=== PATIENT | male | born 1965 | race African-American/Black ===

== ENCOUNTER 2017-03-31 06:29 | Day surgery (SDC) | payer BC ==
[~2017-03-31] VITALS: Ht 177.8 cm; Wt 113.4 kg
[~2017-03-31 06:29] MED LIST: PANT20TA PO
[2017-03-31] MEDS ORDERED: SODIUM CHLORIDE 0.9% 1000ML 1,000 ML IV ONE (06:47)
[2017-03-31 06:59] VITALS: BP 109/72
[2017-03-31] MEDS ORDERED: PROPOFOL 10 MG/ML 20ML VIAL IV ONE (07:25)
[2017-03-31] MEDS ORDERED: GLYCOPYRROLATE 0.2 MG/ML 5 ML VIAL ONE (07:25)
[2017-03-31] MEDS ORDERED: FENTANYL CITRATE PF 50 MCG/1 ML 2ML VIAL ONE (07:25)
[2017-03-31 07:44] VITALS: BP 88/54
== END 2017-03-31 08:20 ==
LOC: DAH 06:29
PROVIDERS: ATTEND Internal Medicine Gastroenterology
DX: K31.84 Gastroparesis (principal); K21.9 Gastro-esophageal reflux disease without esophagitis
CPT/HCPCS: 43235; A4606; J2704; J3010; J3490; J7030

== ENCOUNTER → 2017-04-30 | Outpatient (CLI) | payer BC | END | disposition home or self-care (01) | LOC: RAH 10:26 | PROVIDERS: ATTEND Internal Medicine Gastroenterology | DX: R11.0 Nausea (principal); R14.0 Abdominal distension (gaseous); R14.2 Eructation; R10.9 Unspecified abdominal pain | CPT/HCPCS: 78264; A9541 ==

== ENCOUNTER → 2017-05-14 | Outpatient (CLI) | payer BC | END | disposition home or self-care (01) | LOC: RAH 08:32 | PROVIDERS: ATTEND Internal Medicine Gastroenterology | DX: R10.84 Generalized abdominal pain (principal); R63.4 Abnormal weight loss | CPT/HCPCS: 76700 ==

== ENCOUNTER 2017-11-27 11:24 | Observation (INO) | payer BC ==
[2017-11-27] VITALS (19 sets, daily range): BP systolic 101–123; BP diastolic 55–75
[~2017-11-27] VITALS: Ht 180.3 cm; Wt 113.4 kg
[2017-11-27 12:00] LABS: APPEARANCE,URINE Clear (CLEAR); BILIRUBIN,URINE Negative (NEGATIVE); COLOR,URINE Yellow (YELLOW); GLUCOSE, URINE (UA) Negative (NEGATIVE); KETONES,URINE Negative (NEGATIVE); LEUKOCYTE ESTERASE ,URINE Negative (NEGATIVE); NITRATE,URINE Negative (NEGATIVE); OCCULT BLOOD,URINE Negative (NEGATIVE); PH,URINE 7.5 (5.0-8.0); PROTEIN,URINE Negative (NEGATIVE); UROBILINOGEN,URINE 0.2 mg/dL (0.2-1.0)
[2017-11-27] MEDS ORDERED: KETOROLAC TROMETHAMINE 30MG/ML ONE ×2 (12:07→16:08)
[2017-11-27] MEDS ORDERED: SODIUM CHLORIDE 0.9% 1000ML 1,000 ML IV ONE (12:07)
[2017-11-27] MEDS ORDERED: ONDANSETRON HCL 4 MG/2 ML VIAL ONE ×2 (12:07→16:07)
[2017-11-27 12:14] LABS: BASOPHILS % (AUTO) 0.6 % (0.0-5.0); HEMATOCRIT 45.4 % (42-54); LYMPHOCYTES % (AUTO) 22.5 % (21.0-51.0); MEAN CORPUSCULAR HEMOGLOBIN 28.5 pg (27.0-33.0); MEAN CORPUSCULAR HGB CONC 33.4 g/dL (32.0-36.0); MEAN CORPUSCULAR VOLUME 85.3 fL (79-99); NEUTROPHILS % (AUTO) 68.9 % (40.0-77.0); PLATELET COUNT (AUTO) 219 K/uL (130-400); RED BLOOD CELL COUNT(AUTO) 5.32 MIL/uL (4.50-6.20); RED CELL DISTRIBUTION WIDTH 13.9 % (11.0-15.5); WHITE BLOOD COUNT (AUTO) 8.8 K/uL (4.8-10.8)
[2017-11-27 12:21] LABS: CREATININE 1.2 mg/dL (0.5-1.5); POTASSIUM 4.1 mmol/L (3.5-5.1)
[2017-11-27 12:26] LABS: ALBUMIN 4.4 g/dL (3.5-5.0); BILIRUBIN,TOTAL 0.7 mg/dL (0.2-1.0); TOTAL PROTEIN, SERUM 7.9 g/dL (6.0-8.3)
[2017-11-27] MEDS ORDERED: IOHEXOL-350 75 ML VIAL IV ONE (12:31)
[2017-11-27] MEDS ORDERED: ZOSYN 3.375GM+NS 50ML 50 ML IV ONE (14:02)
[2017-11-27] MEDS ORDERED: LIDOCAINE PF 2% 5ML ABBOJECT ONE (14:30)
[2017-11-27] MEDS ORDERED: SUCCINYLCHOLINE 200MG/10ML SYR ONE (14:30)
[2017-11-27] MEDS ORDERED: PROPOFOL 10 MG/ML 20ML VIAL IV ONE (14:31)
[2017-11-27] MEDS ORDERED: ROCURONIUM 10MG/1ML SYR 10 MG/ML ML ONE (14:31)
[2017-11-27] MEDS ORDERED: FENTANYL CITRATE PF 50 MCG/1 ML 5ML AMP IV ONE (14:32)
[2017-11-27] MEDS ORDERED: MEPERIDINE-PF 50 MG/ML SYG ONE (14:50)
[2017-11-27] MEDS ORDERED: MIDAZOLAM HCL 1 MG/ML 2ML VIAL ONE (15:03)
[2017-11-27] MEDS ORDERED: DEXAMETHASONE SOD PHOSPHATE 4 MG/ML 1ML VIAL ONE (16:07)
[2017-11-27] MEDS ORDERED: GLYCOPYRROLATE 1 MG/5 ML SYRINGE ONE (16:11)
[2017-11-27] MEDS ORDERED: NEOSTIGMINE 5MG/5ML SYR IV ONE (16:11)
[2017-11-27] MEDS ORDERED: ACETAMINOPHEN 325 MG TAB PO PRN (16:30)
[2017-11-27] MEDS ORDERED: ONDANSETRON HCL 4 MG/2 ML VIAL IVP PRN (16:30)
[2017-11-27] MEDS ORDERED: FENTANYL CITRATE PF 50 MCG/1 ML 2ML VIAL ONE (16:44)
[2017-11-27] MEDS ORDERED: MORPHINE SULFATE 4 MG/1ML SYG ONE (16:54)
[2017-11-27] MEDS: LACTATED RINGERS 1000ML 1,000 ML IV SCH ×2 (17:25→21:00)
[2017-11-27] MEDS: ZOSYN 3.375GM+NS 50ML 50 ML IV SCH (21:00)
[2017-11-27] MEDS: MORPHINE SULFATE 2 MG/ML 1ML SYG IV PRN (22:28)
[2017-11-28 04:05] VITALS: BP 103/56
[2017-11-28] MEDS: ZOSYN 3.375GM+NS 50ML 50 ML IV SCH (04:39)
[2017-11-28] MEDS: MORPHINE SULFATE 2 MG/ML 1ML SYG IV PRN (05:57)
[2017-11-28] MEDS: ACETAMINOPHEN-CODEINE 300/30MG TAB PO PRN ×3 (06:53→14:17)
[2017-11-28 07:51] VITALS: BP 106/50
[2017-11-28 11:17] VITALS: BP 107/58
[2017-11-28] MEDS ORDERED: ACET1TAB12 PO (13:01)
== END 2017-11-28 15:25 | disposition home or self-care (01) ==
LOC: EDH 11:24 → EDHIP 14:10 → 4AH 17:07
PROVIDERS: ADMIT Surgery; ATTEND Surgery
DX: K35.80 Unspecified acute appendicitis (principal); K66.0 Peritoneal adhesions (postprocedural) (postinfection)
CPT/HCPCS: 36415; 44950; 74177; 80053; 81003; 83690; 85025; 88304; 96365; 96366 ×2; 96375; 96376; 99285; A4450; A4452; A4930 ×2; G0378 ×25; J0330; J1100; J1885 ×2; J2001; J2175; J2250; J2270; J2405 ×3; J2543 ×3; J2704; J2710; J3010 ×2; J3490; J7030; J7120 ×2; Q9967